=== PATIENT | female | born 1955 | race Caucasian/White ===

== ENCOUNTER 2023-09-08 06:44 | Day surgery (SDC) | payer MEDICARE, OTHER ==
[2023-09-05 11:13] VITALS: BP 128/66; PULSE 70; RESP 18
[2023-09-05 11:14] LABS: BASOPHILS # (AUTO) 0.08 K/uL (0.00-0.20); BASOPHILS % (AUTO) 0.8 % (0.0-5.0); EOSINOPHILS # (AUTO) 1.28 K/uL (0.00-0.70); EOSINOPHILS % (AUTO) 12.8 % (0.0-8.0); HEMATOCRIT 44.9 % (36-48); IMMATURE GRANULOCYTE ABSOLUTE 0.04 K/uL (0-1); LYMPHOCYTES # (AUTO) 2.2 K/uL (1.0-4.8); LYMPHOCYTES % (AUTO) 21.5 % (21.0-51.0); MEAN CORPUSCULAR HEMOGLOBIN 27.7 pg (27.0-33.0); MEAN CORPUSCULAR HGB CONC 31.8 g/dL (32.0-36.0); MONOCYTES # (AUTO) 0.7 K/uL (0.1-1.0); MONOCYTES % (AUTO) 6.9 % (3.0-13.0); NEUTROPHILS # (AUTO) 5.8 K/uL (1.8-7.7); NEUTROPHILS % (AUTO) 57.6 % (40.0-77.0); PLATELET COUNT (AUTO) 254 K/uL (130-400); RED BLOOD CELL COUNT(AUTO) 5.16 MIL/uL (4.00-5.50); RED CELL DISTRIBUTION WIDTH 13.7 % (11.0-15.5)
[2023-09-05 11:16] LABS: POTASSIUM 5.3 mmol/L (3.5-5.1)
[2023-09-05 11:28] LABS: PROTHROMBIN TIME 11.6 SEC (9.6-11.6)
[2023-09-05 11:29] LABS: PARTIAL THROMBOPLASTIN TIME 35.3 SEC (26.3-35.5)
[2023-09-05 11:36] LABS: B-TYPE NATRIURETIC PEPTIDE 90 pg/mL (0-100)
[2023-09-08] VITALS (22 sets, daily range): BP systolic 100–138; BP diastolic 51–84; PULSE 69–71; RESP 11–17
[~2023-09-08] VITALS: Ht 170.2 cm; Wt 74.4 kg
[~2023-09-08 06:44] MED LIST: APIX5TAB PO; DIGO125T71 PO; LEVO200T10 PO; METO25 PO
[2023-09-08] MEDS ORDERED: 0.9%NACL 1000ML 1,000 ML IV ONE (08:07)
[2023-09-08] MEDS ORDERED: FENTANYL CITRATE PF 50 MCG/1 ML 2ML VIAL ONE (09:31)
[2023-09-08] MEDS ORDERED: MIDAZOLAM HCL 1 MG/ML 2ML VIAL ONE (09:31)
[2023-09-08] MEDS ORDERED: FLUMAZENIL 0.1MG/1ML 5ML VIAL IV ONE (09:36)
[2023-09-08] MEDS ORDERED: LIDOCAINE HCL 2% VISCOUS 15 ML UDCUP ONE (09:38)
[2023-09-08] MEDS ORDERED: LIDOCAINE PF 100MG/5ML (2%) SYRINGE 5ML ONE (09:52)
[2023-09-08] MEDS ORDERED: PROPOFOL 10 MG/ML 20ML VIAL IV ONE (09:52)
== END 2023-09-08 11:44 | disposition home or self-care (01) ==
LOC: DAH 06:44 → EDSTATUS 09:00 → DAH 11:44
PROVIDERS: ATTEND Internal Medicine Interventional Cardiology
DX: I48.11 Longstanding persistent atrial fibrillation (principal); I10 Essential (primary) hypertension; Z79.01 Long term (current) use of anticoagulants; Z79.899 Other long term (current) drug therapy
CPT/HCPCS: 80048; 83880; 85025; 85610; 85730; 36415; 93005; 93306; J3010; J7030; J2001; J2250; J2704; A4620; A4215; A4223 ×3; A7002; A4222; A4221; A4663; A4216; A4606; J3490

== ENCOUNTER → 2024-03-05 | Outpatient (CLI) | payer OTHER | END | disposition home or self-care (01) | LOC: OIH 13:36 | PROVIDERS: ATTEND Internal Medicine Cardiovascular Disease | DX: Z13.6 Encounter for screening for cardiovascular disorders (principal) | CPT/HCPCS: 75571 ==